=== PATIENT | female | born 1950 | race Caucasian/White ===

== ENCOUNTER 2018-07-30 20:50 | Emergency (ER) | payer MEDICARE, SELFPAY ==
[2018-07-30 20:55] VITALS: BP 144/59; PULSE 125; RESP 29; TEMP 36.7; O2SAT 98
[2018-07-30] MEDS: SODIUM CHLORIDE 0.9% 1,000 ML 1000 ML IV (20:56)
[2018-07-30] MEDS: FAMOTIDINE 20 MG/50 ML PIGGYBACK 200 MG IV (20:56)
[2018-07-30 21:05] VITALS: BP 137/75; PULSE 108; RESP 21; O2SAT 100
[2018-07-30] MEDS: methylPREDNISolone 125 MG/2 ML VIAL IV (21:06)
--- NOTE | 2018-07-30 21:08 | PC.NURSE ---
patient maintaining airway and secretions at this time. provider aware. no new orders at this time.
--- NOTE | 2018-07-30 21:08 | PC.NURSE ---
patient reports that she is feeling better than when she arrived at the ED. she reports that the swelling in her tongue is decreasing. provider aware and no new orders at this time.
--- NOTE | 2018-07-30 21:10 | ED_ITS ---
HPI - Allergic Reaction General Chief complaint: Allergic Reaction Stated complaint: Allergic Reaction Time Seen by Provider: 07/30/18 20:56 Source: EMS Mode of arrival: EMS History of Present Illness HPI narrative: patient is a 67-year-old female who presents with difficulty breathing and probable allergic reaction. She was at home eating lobster when she developed lip swelling and tongue swelling and a rash. She received epinephrine and Benadryl prior to arrival. She is now shaking. She says it might be getting better. Her voice is not hoarse. She has never had a reaction before. Although she is allergic to IV iodine contrast MD complaint: allergic reaction, hives and facial swelling Onset (ago): hour(s) (1) Exposure: food Symptoms: rash, itching and lip swelling Severity: moderate Treatment prior to arrival: benadryl (50 p.o.) and epinephrine Previous Allergic Reaction History: none Related Data Allergies Allergy/AdvReac Type Severity Reaction Status Date / Time Iodinated Contrast- Oral and Allergy Unknown Verified 07/30/18 20:58 IV Dye Review of Systems Review of Systems All systems reviewed & are unremarkable except as noted in HPI and below Constitutional Denies chills, Denies fever(s), Denies lethargy and Denies weakness ENT Ears, Nose, Mouth, and Throat: Reports as per HPI, Reports lip swelling and Reports throat swelling Cardiovascular Denies chest pain, Denies irregular heart rhythm, Denies lightheadedness, Reports palpitations and Denies orthopnea Respiratory Reports as per HPI Gastrointestinal Gastrointestinal: Denies abdominal pain, Denies change in bowel habits, Denies diarrhea, Denies nausea and Denies vomiting Musculoskeletal Denies back pain, Denies muscle weakness, Denies numbness and Denies tingling Integumentary/Breasts Reports pruritus and Reports erythema Neurologic Denies numbness, Denies tingling and Denies weakness Endocrine Reports palpitations Allergic/Immunologic Reports lip swelling and Reports throat swelling [facility] Medical History Healthy adult (Acute) Social History Smoking Status: Never smoker Exam Initial Vital Signs Initial Vital Signs: Vital Signs Temperature 98.1 F 07/30/18 20:55 Pulse Rate 125 H 07/30/18 20:55 Respiratory Rate 29 H 07/30/18 20:55 Blood Pressure 144/59 H 07/30/18 20:55 Pulse Oximetry 98 07/30/18 20:55 GENERAL: Patient traveling and shaking but awake and alert and responsive HEENT: Head atraumatic,EOMI, pupils reactive PHARYNX: Upper lip swelling mild tongue swelling no stridor airway patent CARDIOVASCULAR: Regular rate and rhythm without murmurs, rubs or gallops. RESPIRATORY: Breath sounds equal bilaterally, no wheezes rales or rhonchi. ABDOMEN: Soft, nontender. Normoactive bowel sounds all 4 quadrants. No guarding or rebound. EXTREMITIES: Normal range of motion, no clubbing or edema. Neurovascularly intact NEUROLOGICAL: Alert and oriented x4.Normal gait and speech. Cranial nerves II through XII grossly intact. SKIN: Warm, dry, no laceration, no petechiae, no rashes or lesions. Course Orders Ordered: Discontinued Medications Famotidine (Pepcid) 20 mg in 50 mls @ 200 mls/hr IV NOW ONE Stop: 07/30/18 21:10 Last Infusion: 07/30/18 21:11 Dose: 0 mls/hr Admin: 07/30/18 20:56 Dose: 200 mls/hr Sodium Chloride (Normal Saline 0.9%) 1,000 mls @ 1,000 mls/hr IV BOLUS ONE Stop: 07/30/18 21:55 Last Infusion: 07/30/18 22:40 Dose: 0 mls/hr Admin: 07/30/18 20:56 Dose: 1,000 mls/hr Methylprednisolone (Solu-Medrol 125 Mg Vial) 125 mg IV NOW ONE Stop: 07/30/18 20:57 Last Admin: 07/30/18 21:06 Dose: 125 mg Vital Signs - 8 hr 07/30/18 20:55 07/30/18 21:05 07/30/18 21:30 Temperature 98.1 F Pulse Rate 125 H 108 H 95 H Respiratory Rate 29 H 21 19 Blood Pressure 144/59 H Blood Pressure [Left Arm] 137/75 133/68 Pulse Oximetry 98 100 97 07/30/18 22:16 Temperature Pulse Rate 101 H Respiratory Rate 18 Blood Pressure Blood Pressure [Left Arm] 129/50 L Pulse Oximetry 100 MDM - Allergic Reaction MDM Narrative Medical decision making narrative: Patient is monitored in the ED. The this shaking decreases her lip and tongue swelling also decreased. On rash improves she overall is feeling better. She is allergic to IV iodine may or may not be related to shellfish. I recommended allergy testing for her. I discussed all findings with the patient, Education has been performed regarding treatment plan, diagnosis, warning signs and symptoms and all concerns have been addressed. Verbally agree with and understood all of the above. Discharge Plan Departure Patient Disposition: Home Clinical Impression: Anaphylaxis Discharge Date/Time: 07/30/18 22:40 Interventions: ED Discharge Assessment Last Done: 07/30/18 22:38 Instructions: Anaphylaxis Activity Restrictions/Additional Instructions: *You have been diagnosed with allergic reaction, anaphylaxis *What to do: you are severely allergic to a lobster and possibly all shellfish recommend allergy testing *Continue to take medications as directed *Follow up with your primary care provider in 2-3 days *Return to ER if you should have increased difficulty breathing, any new, worsening or concerning symptoms
[2018-07-30 21:30] VITALS: BP 133/68; PULSE 95; RESP 19; O2SAT 97
[2018-07-30 22:16] VITALS: BP 129/50; PULSE 101; RESP 18; O2SAT 100
== END 2018-07-30 22:40 | disposition home or self-care (01) ==
PROVIDERS: Emergency Provider Emergency Medicine
DX: T78.2XXA Anaphylactic shock, unspecified, initial encounter (principal)
CPT/HCPCS: 96361; 96374; 96375; 99283; 99284; J2930

== ENCOUNTER 2019-02-03 13:44 | Emergency (ER) | payer MEDICARE, SELFPAY ==
[2019-02-03] VITALS (9 sets, daily range): BP systolic 97–141; BP diastolic 44–82; PULSE 74–104; RESP 14–27; TEMP 36.4; O2SAT 91–100; BMI 25.6
--- NOTE | 2019-02-03 13:50 | DI.CT.S_ITS ---
PROCEDURE: CT HEAD/BRAIN WO CON INDICATIONS: headache and collapse TECHNIQUE: Noncontrast 4.5 mm thick angled axial sections acquired from the foramen magnum to the vertex, with coronal and sagittal reformats. For radiation dose reduction, the following was used: automated exposure control, adjustment of mA and/or kV according to patient size. COMPARISON: None. FINDINGS: Image quality: Excellent. CSF spaces: Basal cisterns are patent. No extra-axial fluid collections. Ventricles are normal in size and shape. Brain: No intracranial hemorrhage, mass, or mass effect. Santillan-white matter interface is preserved. Skull and face: Calvarium and visualized facial bones are intact, without suspicious lesions. Sinuses: Visualized sinuses and mastoids are clear. IMPRESSION: 1. No acute intracranial abnormality. Dictated by: Adrian Gaytan M.D. on 02/03/2019 at 14:09 Approved by: Adrian Gaytan M.D. on 02/03/2019 at 14:10
[2019-02-03] MEDS: SODIUM CHLORIDE 0.9% 1,000 ML 1000 ML IV (14:02)
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
[2019-02-03] MEDS: EPINEPHrine 1 MG/ML AMPUL 0.3 MG IM (14:21)
[2019-02-03] MEDS: methylPREDNISolone 125 MG/2 ML VIAL IV (14:21)
[2019-02-03] MEDS: diphenhydrAMINE 50 MG/ML VIAL 25 MG IV (14:21)
--- NOTE | 2019-02-03 14:27 | PC.NURSE ---
MD called to bedside for tongue dry and swelling. Pt shaking and per , just like she was with lobster allergy. Meds per MD order given. C/o lab draw painful. Will attempt to draw from IV site.
[2019-02-03 15:04] LABS: Add Manual Diff / Slide Review YES; Hematocrit 41.2 % (36-46); Hemoglobin 13.6 g/dL (12.0-16.0); Mean Corpuscular HGB Conc 33.1 % (30-36); Mean Corpuscular Hemoglobin 29.5 PG (26-34); Mean Corpuscular Volume 89.2 fL (80-100); Platelet Count 358 X10^3/uL (150-400); Red Blood Cell Count 4.62 X10^6/uL (4.0-5.2); Red Cell Distribution Width 14.3 % (11.6-14.8); White Blood Cell Count 19.1 X10^3/uL (4.5-11.0)
[2019-02-03 15:11] LABS: Alanine Aminotransferase 22 IU/L (9-52); Albumin 4.7 g/dL (3.5-5.0); Albumin Globulin Ratio 1.5 (1.0-2.8); Alkaline Phosphatase 71 U/L (38-126); Aspartate Aminotransferase 28 IU/L (14-36); BUN Creatinine Ratio 15.6 (6-22); Bilirubin Total 0.7 mg/dL (0.2-1.3); Blood Urea Nitrogen 14 mg/dL (7-17); Calcium 9.6 mg/dL (8.4-10.2); Carbon Dioxide 16 mmol/L (22-32); Chloride 107 mmol/L (98-107); Creatine Kinase 164 U/L (30-135); Estimated Glomerular Filt Rate > 60.0 mL/min (>60); Globulin 3.1 g/dL (1.7-4.1); Glucose 124 mg/dL (80-110); HEMOLYSIS 29 (0-50); Sodium 141 mmol/L (137-145); Total Protein 7.8 g/dL (6.3-8.2)
[2019-02-03 15:15] LABS: Potassium 2.7 mmol/L (3.4-5.1)
[2019-02-03 15:23] LABS: Troponin I < 0.012 ng/mL (0.01-0.034)
[2019-02-03 15:26] LABS: CKMB % Relative Index 0.7 % (1.5-5.0); Creatine Kinase MB 1.21 ng/mL (<2.37)
[2019-02-03] MEDS: POTASSIUM CHLORIDE 20 MEQ TAB 40 MEQ PO (15:28)
[2019-02-03 15:29] LABS: Neutrophils Absolute Manual 5157 /uL (3000-5900); Total Cells Counted 100
[2019-02-03 15:30] LABS: Burr Cells 1+
[2019-02-03] MEDS: POTASSIUM CHLORIDE 20 MEQ in SODIUM CHLORIDE 0.9% 250 ML 130 ML IV (15:39)
[2019-02-06 16:17] LABS: Osmolality Urine 139 mOsm/kg (50-1200)
== END 2019-02-03 18:44 | disposition home or self-care (01) ==
PROVIDERS: Emergency Provider Emergency Medicine
DX: E87.6 Hypokalemia (principal); T78.2XXA Anaphylactic shock, unspecified, initial encounter; R55 Syncope and collapse; R51 Headache
CPT/HCPCS: 36415; 70450; 80053; 81003; 82550; 82553; 83935; 84133; 84484; 85025; 93005; 93010; 96361; 96372; 96374; 96375; 99285; J0171; J1200; J2930; J3480

== ENCOUNTER → 2022-04-30 10:23 | Outpatient (CLI) | payer MEDICARE, SELFPAY ==
--- NOTE | 2022-04-30 | DI.US.S_ITS ---
PROCEDURE: US PELVIC COMPLETE INDICATIONS: PELVIC AND PERINEAL PAIN TECHNIQUE: Real-time scanning was performed of the pelvic organs, with image documentation. Additional endovaginal scanning was necessary due to incomplete visualization of the adnexal and endometrial structures by transabdominal scanning. COMPARISON: None. FINDINGS: Unremarkable atrophic uterus measuring 2.4 x 3.4 x 5.6 cm. No uterine mass. Endometrium is not well visualized but is only 3 mm in thickness. Ovaries not visualized, likely atrophic. No free fluid or mass identified. IMPRESSION: Atrophic but otherwise unremarkable uterus. Ovaries nonvisualized, likely atrophic. No free fluid or mass. We strive to produce accurate, complete, and clear reports of imaging services. To assist us in improving patient care, this report was composed using standard report templates and voice recognition software. Therefore, it may contain abnormal punctuation, insertions and/or omissions. Occasional wrong-word or sound-alike substitutions may occur. Though we review the report and make efforts to correct it, we do recommend that the report be read carefully in proper context to recognize any text inaccuracies. Dictated by: Aakash Sterling M.D. on 04/30/2022 at 15:57 Approved by: Aakash Sterling M.D. on 04/30/2022 at 15:59
== END ==
PROVIDERS: PCP Registered Nurse; Referring Provider Nurse Practitioner Family; Visit Provider Nurse Practitioner Family
DX: R10.2 Pelvic and perineal pain (principal); N85.8 Other specified noninflammatory disorders of uterus
CPT/HCPCS: 76830; 76856

== ENCOUNTER 2023-01-15 17:50 | Emergency (ER) | payer MEDICARE, OTHER, SELFPAY ==
[2023-01-15] VITALS (13 sets, daily range): BP systolic 114–158; BP diastolic 57–80; PULSE 74–99; RESP 16–37; TEMP 36.3–37.1; O2SAT 91–100; BMI 27.3
[2023-01-15] MEDS: LORazepam 2 MG/ML INJ 0.5 MG IV (18:30)
[2023-01-15] MEDS: SODIUM CHLORIDE 0.9% 1,000 ML 1000 ML IV (18:31)
--- NOTE | 2023-01-15 18:43 | ED_ITS ---
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 She said she ate 2 hot dogs and within 30 minutes felt like she was in [place] in [facility] and things were weird. She has no lip swelling tongue swelling difficulty breathing or hives. She received to epinephrine pens. He says he is had the same symptoms she had when she was allergic to shellfish. She denies any alcohol use or drug use. After further investigation turns out that patient was cleaning the kitchen live with their children she found brownies hit in up high and ate almost the full Brownie. It is confirmed that these were marijuana brownies Related Data Previous Rx's Medication Instructions Recorded azithromycin 250 mg tablet 250 mg PO DAILY #6 tabs 08/12/22 (Zithromax) lidocaine HCl 2 % mucosal solution 1 applic mucous membrane BID-TID 08/12/22 (Lidocaine Viscous) sore throat #100 mL epinephrine 0.3 mg/0.3 mL 0.3 mg (0.3 mL) IM Q5-15M PRN 01/15/23 injection, auto-injector anaphylaxis #2 ea Allergies Allergy/AdvReac Type Severity Reaction Status Date / Time Iodinated Contrast Media Allergy Unknown Verified 08/12/22 12:41 [Iodinated Contrast- Oral and IV Dye] shellfish derived Allergy Anaphylaxis Verified 01/15/23 18:10 diphenhydramine AdvReac Palpitation Verified 01/15/23 18:16 [From Benadryl] s lobster Allergy Anaphylaxis Uncoded 01/15/23 18:10 Review of Systems Review of Systems ROS Unobtainable: All systems reviewed & are unremarkable except as noted in HPI and below Patient History Medical History (Updated 01/15/23 @ 21:08 by Maria Martinez DO) Healthy adult Social History Smoking Status: Never smoker Smoking Status: Never smoker alcohol intake frequency: 0-2 drinks per day Substance Use Type: does not use Exam Initial Vital Signs Initial Vital Signs: Vital Signs Pulse Rate 99 H 01/15/23 17:56 Blood Pressure 114/80 01/15/23 17:56 Pulse Oximetry 100 01/15/23 17:56 GENERAL: Alert confused 72-year-old female no acute distress HEENT: Head atraumatic,EOMI, pupils reactive, face symmetric, [moist] mucous membranes CARDIOVASCULAR: Regular rate and rhythm without murmurs, rubs or gallops. RESPIRATORY: Breath sounds equal bilaterally, no wheezes rales or rhonchi. ABDOMEN: Soft, nontender. Normoactive bowel sounds all 4 quadrants. No guarding or rebound. EXTREMITIES: Normal range of motion, no clubbing or edema. Neurovascularly intact NEUROLOGICAL: Alert and oriented x4. Slightly slurred speech moving all extremities SKIN: Warm, dry, no laceration, no petechiae, no rashes or lesions. Course Orders Ordered: ED Orders 01/15/23 21:25 Urine Drug Screen, Rapid Stat Discontinued Medications Sodium Chloride (Normal Saline 0.9%) 1,000 mls @ 1,000 mls/hr IV CONT DEBBIE Last Infusion: 01/15/23 19:35 Dose: 0 mls/hr Documented By: Admin: 01/15/23 18:31 Dose: 1,000 mls/hr Documented By: ALYSON Lorazepam (Lorazepam 2 Mg/Ml Inj) 0.5 mg IV NOW ONE Stop: 01/15/23 18:26 Last Admin: 01/15/23 18:30 Dose: 0.5 mg Documented By: ALYSON Potassium Chloride (Potassium Chloride 20 Meq Tab) 40 meq PO NOW ONE Stop: 01/15/23 19:05 Last Admin: 01/15/23 19:34 Dose: 40 meq Documented By: RENZO Vital Signs Vital signs: Vital Signs - 8 hr 01/15/23 17:59 01/15/23 17:56 01/15/23 17:56 Temperature 98.7 F Pulse Rate 89 99 H Respiratory Rate 16 Blood Pressure 114/80 114/80 Pulse Oximetry 99 100 Oxygen Delivery Method Room Air 01/15/23 18:00 01/15/23 18:24 01/15/23 18:24 Temperature Pulse Rate 95 H 92 H Respiratory Rate 33 H Blood Pressure 149/67 H Pulse Oximetry 100 100 Oxygen Delivery Method 01/15/23 18:30 01/15/23 18:30 01/15/23 19:00 Temperature Pulse Rate 93 H 84 Respiratory Rate 37 H 20 Blood Pressure 142/70 H Pulse Oximetry 99 100 Oxygen Delivery Method Room Air 01/15/23 19:01 01/15/23 19:01 01/15/23 19:30 Temperature Pulse Rate 86 91 H Respiratory Rate 36 H 18 Blood Pressure 158/68 H Pulse Oximetry 100 Oxygen Delivery Method 01/15/23 19:31 01/15/23 19:31 01/15/23 20:00 Temperature Pulse Rate 84 Respiratory Rate 22 Blood Pressure 122/57 L 125/58 L Pulse Oximetry Oxygen Delivery Method 01/15/23 20:00 Temperature Pulse Rate 89 Respiratory Rate 18 Blood Pressure Pulse Oximetry 91 Oxygen Delivery Method MDM - Allergic Reaction Lab Data 01/15/23 18:28 01/15/23 18:28 Labs: Lab Results 01/15/23 01/15/23 01/15/23 Range/Units 18:28 18:28 21:25 WBC 14.9 H (4.5-11.0) X10^3/uL RBC 4.18 (4.0-5.2) X10^6/uL Hgb 12.5 (12.0-16.0) g/dL Hct 37.1 (36-46) % MCV 88.8 (80-100) fL MCH 29.9 (26-34) PG MCHC 33.7 (30-36) % RDW 13.4 (11.6-14.8) % Plt Count 298 (150-400) X10^3/uL Neut % (Auto) 40.1 L (50-75) % Lymph % (Auto) 50.5 H (25-40) % [place] % (Auto) 6.5 (3-14) % Eos % (Auto) 2.2 (2-4) % Baso % (Auto) 0.7 (0-2) % Neut # (Auto) 6000 (6471-1069) /uL Lymph # (Auto) 7600 H (5504-5207) /uL [place] # (Auto) 1000 H (0-900) /uL Eos # (Auto) 300 (0-450) /uL Baso # (Auto) 100 (0-100) /uL Sodium 136 L (137-145) mmol/L Potassium 2.8 L (3.4-5.1) mmol/L Chloride 101 (98-107) mmol/L Carbon Dioxide 20 L (22-32) mmol/L BUN 22 H (7-17) mg/dL Creatinine 1.03 (0.52-1.04) mg/dL Estimated GFR 58 L (>60) mL/min BUN/Creatinine Ratio 21.4 (6-22) Glucose 149 H (80-110) mg/dL Calcium 9.1 (8.4-10.2) mg/dL Total Bilirubin 0.4 (0.2-1.3) mg/dL AST 34 (14-36) IU/L ALT 28 (<35) IU/L Alkaline Phosphatase 57 (38-126) U/L Total Creatine Kinase 166 H (30-135) U/L CK-MB (CK-2) 0.93 (<2.37) ng/mL CK-MB (CK-2) Rel Index 0.6 L (1.5-5.0) % Troponin I < 0.012 (0.01-0.034) ng/mL Total Protein 7.5 (6.3-8.2) g/dL Albumin 4.5 (3.5-5.0) g/dL Globulin 3.0 (1.7-4.1) g/dL Albumin/Globulin Ratio 1.5 (1.0-2.8) Salicylates < 1.0 (<20) mg/dL U Opiates 300ng/mL cut Negative (Negative) Ur Oxycodone Screen Negative (Negative) Urine Methadone Screen Negative (Negative) Acetaminophen < 10 (10-30) ug/mL Ur Barbiturates Screen Negative (Negative) U Tricyclic Antidepress Negative (Negative) Ur Phencyclidine Scrn Negative (Negative) Ur Amphetamines Screen Negative (Negative) U Methamphetamines Scrn Negative (Negative) Ur MDMA Scrn (Ecstasy) Negative (Negative) U Benzodiazepines Scrn Negative (Negative) Urine Cocaine Screen Negative (Negative) U Marijuana (THC) Screen Positive H (Negative) Ethyl Alcohol < 10 ( - 10) mg/dL [facility] Narrative Medical decision making narrative: Patient 72-year-old female presents today for possible allergic after eating hot dogs and feeling weird. She ate a marijuana Brownie. Which caused her hallucinations and to not feel quite right. Due to her known history of anaphylaxis to other medication she has 2 epinephrine pens. She was given 2 doses thought to be having allergic reaction. She is no stridor rash tongue swelling or lip swelling no nausea vomiting. Really no symptoms of anaphylaxis or allergic reaction. I think her symptoms are secondary to the marijuana she ingested. Blood work is overall reassuring she does have some mild leukocytosis of 14.9, potassium slightly low at 2.8 she is given 40 mg in the ED no evidence of JAYA she previously was hypokalemic with a potassium 2.7. At this time both she and her myself agrees symptoms are likely not related to allergic reaction and feel ready and able to go Discharge Plan Departure Patient Disposition: Home Clinical Impression: Accidental marijuana overdose Instructions: DI for Anaphylaxis Activity Restrictions/Additional Instructions: *You have been diagnosed with marijuana ingestion *What to do: Please ask your children before eating sweets. Sorry this h appened to. *Continue to take medications as directed [At your request you're medications have been faxed to] *Follow up with your primary care provider in 2-3 days or call [phone] *Return to ER if you should have any new, worsening or concerning symptoms Prescriptions: New epinephrine 0.3 mg/0.3 mL auto-injector 0.3 mg IM Q5-15M PRN (Reason: anaphylaxis) Qty: 2 0RF Rx Instructions: do not exceed 3 doses per episode No Action lidocaine HCl [Lidocaine Viscous] 2 % solution 1 applic mucous membrane BID-TID Qty: 100 0RF Rx Instructions: gargle 5 cc for 1 min prior to meal azithromycin [Zithromax] 250 mg tablet 250 mg PO DAILY Qty: 6 0RF Rx Instructions: take 2 day 1 then 1 tab daily for dayy 2-5 OK z pack Referrals: Gil Geiger ARNP [Primary Care Provider] - Stand Alone Forms: Patient Portal/API
[2023-01-15 18:50] LABS: Acetaminophen < 10 ug/mL (10-30); Alanine Aminotransferase 28 IU/L (<35); Albumin 4.5 g/dL (3.5-5.0); Albumin Globulin Ratio 1.5 (1.0-2.8); Alkaline Phosphatase 57 U/L (38-126); Aspartate Aminotransferase 34 IU/L (14-36); BUN Creatinine Ratio 21.4 (6-22); Bilirubin Total 0.4 mg/dL (0.2-1.3); Blood Urea Nitrogen 22 mg/dL (7-17); Calcium 9.1 mg/dL (8.4-10.2); Carbon Dioxide 20 mmol/L (22-32); Chloride 101 mmol/L (98-107); Creatine Kinase 166 U/L (30-135); Estimated Glomerular Filt Rate 58 mL/min (>60); Ethanol (ETOH) < 10 mg/dL; Glucose 149 mg/dL (80-110); HEMOLYSIS 26 (0-50); Potassium 2.8 mmol/L (3.4-5.1); Salicylate < 1.0 mg/dL (<20); Sodium 136 mmol/L (137-145); Total Protein 7.5 g/dL (6.3-8.2)
[2023-01-15 18:52] LABS: Add Manual Diff / Slide Review NO; Basophils Absolute Auto 100 /uL (0-100); Basophils Percent Auto 0.7 % (0-2); Eosinophils Absolute Auto 300 /uL (0-450); Eosinophils Percent Auto 2.2 % (2-4); Hematocrit 37.1 % (36-46); Hemoglobin 12.5 g/dL (12.0-16.0); Lymphocytes Absolute Auto 7600 /uL (1100-4500); Lymphocytes Percent Auto 50.5 % (25-40); Mean Corpuscular HGB Conc 33.7 % (30-36); Mean Corpuscular Hemoglobin 29.9 PG (26-34); Mean Corpuscular Volume 88.8 fL (80-100); Monocytes Absolute Auto 1000 /uL (0-900); Monocytes Percent Auto 6.5 % (3-14); Neutrophils Absolute Auto 6000 /uL (1500-7000); Neutrophils Percent Auto 40.1 % (50-75); Platelet Count 298 X10^3/uL (150-400); Red Blood Cell Count 4.18 X10^6/uL (4.0-5.2); Red Cell Distribution Width 13.4 % (11.6-14.8); White Blood Cell Count 14.9 X10^3/uL (4.5-11.0)
[2023-01-15 19:01] LABS: Troponin I < 0.012 ng/mL (0.01-0.034)
[2023-01-15 19:04] LABS: CKMB % Relative Index 0.6 % (1.5-5.0); Creatine Kinase MB 0.93 ng/mL (<2.37)
[2023-01-15] MEDS: POTASSIUM CHLORIDE 20 MEQ TAB 40 MEQ PO (19:34)
[2023-01-15 21:47] LABS: UR Morphine/Opiate cutoff 300 Negative (Negative); Ur Creatinine Normal (Normal); Ur Specific Gravity Normal (Normal); Urine Amphetamines Negative (Negative); Urine Barbiturates Negative (Negative); Urine Benzodiazepines Negative (Negative); Urine Cocaine Negative (Negative); Urine MDMA Negative (Negative); Urine Methadone Negative (Negative); Urine Methamphetamines Negative (Negative); Urine Oxycodone Negative (Negative); Urine Phencyclidine Negative (Negative); Urine Tetrahydrocannabinol Positive (Negative); Urine Tricyclic Antidepressant Negative (Negative); Urine pH Normal (Normal)
== END 2023-01-15 21:27 | disposition home or self-care (01) ==
PROVIDERS: Emergency Provider Emergency Medicine; PCP Registered Nurse
DX: R44.3 Hallucinations, unspecified (principal); T40.711A Poisoning by cannabis, accidental (unintentional), initial encounter
CPT/HCPCS: 36415; 80053; 80305; 80320; 80329; 82550; 82553; 84484; 85025; 93005; 93010; 96361; 96374; 99284; G0480; J2060